=== PATIENT | male | born 1985 | race Two or more races ===

== ENCOUNTER 2016-11-19 23:13 | Inpatient (IN) | payer OTHER ==
[~2016-11-19] VITALS: Ht 167.6 cm; Wt 75.7 kg
[2016-11-19] MEDS ORDERED: CONTRAST GIVEN MC PRN (23:45)
[2016-11-19] MEDS ORDERED: fentaNYL PF VIAL 100 MCG/2 ML VIAL IV PRN (23:45)
[2016-11-19 23:51] LABS: BASO # 0.1 x10^3/uL (0.0-0.2); BASO % 1 % (0-3); EOS % 2 % (0-3); HEMATOCRIT 35.5 % (39.0-53.0); HEMOGLOBIN 11.1 g/dL (13.0-17.5); LYMPH # 4.3 x10^3/uL (1.0-4.8); LYMPH % 28 % (24-48); MEAN CORPUSCULAR HEMOGLOBIN 21 pg (25-35); MEAN CORPUSCULAR HGB CONC 31 g/dL (31-37); MEAN CORPUSCULAR VOLUME 68 fL (79-100); MONO % 7 % (0-9); NEUT % 63 % (31-73); PLATELET COUNT 322 x10^3/uL (140-400); RED BLOOD COUNT 5.25 x10^6/uL (4.30-5.70); RED CELL DISTRIBUTION WIDTH 16.1 % (11.5-14.5); WHITE BLOOD COUNT 15.4 x10^3/uL (4.0-11.0)
[2016-11-20] MEDS ORDERED: FAMOTIDINE 20 MG/2 ML VIAL IVP ONE
[2016-11-20] MEDS ORDERED: ONDANSETRON PF 4 MG/2 ML VIAL. IV ONE
[2016-11-20] MEDS ORDERED: IV NORMAL SALINE 1000ML BAG 1,000 ML IV SCH
[2016-11-20] MEDS ORDERED: LIDO:MAALOX:DONNATAL 1:1:1 15 ML SINGLE DOSE SWSW ONE
[2016-11-20 00:04] LABS: CALCIUM 9.4 mg/dL (8.5-10.1); CREATININE 1.3 mg/dL (0.7-1.3); POTASSIUM 3.6 mmol/L (3.5-5.1)
[2016-11-20 00:09] LABS: HYPOCHROMIA MOD; MICROCYTOSIS MARKED; PLT ESTIMATE ADEQUATE (ADEQUATE)
[2016-11-20 00:10] LABS: ALBUMIN 3.8 g/dL (3.4-5.0); TOTAL BILIRUBIN 0.3 mg/dL (0.2-1.0); TOTAL PROTEIN 7.5 g/dL (6.4-8.2)
[2016-11-20 00:29] LABS: BILIRUBIN,URINE NEGATIVE (NEG); GLUCOSE,URINE NEGATIVE (NEG); NITRITE,URINE NEGATIVE (NEG); PH,URINE 5.5; PROTEIN,URINE 100 mg/dL (NEG-TRACE); UROBILINOGEN,URINE 0.2 mg/dL (0.2 mg/dL)
[2016-11-20] MEDS ORDERED: IOHEXOL 300 MG/ML 75 ML VIAL IV ONE (00:30)
[2016-11-20 00:37] LABS: BACTERIA,URINE 0 /HPF (0-FEW); RBC,URINE TNTC /HPF (0-2); SQUAMOUS EPITHELIAL CELL,UR OCC /LPF
--- NOTE | 2016-11-20 01:00 | RAD ---
EXAM: CT ABDOMEN/PELVIS WITH CONTRAST. HISTORY: Left abdominal pain. TECHNIQUE: Computed tomography of the abdomen and pelvis was performed after the intravenous administration of 75 mL Omnipaque 300. COMPARISON: None. FINDINGS: Lung windows through the visualized portions of the bases reveal mild atelectasis. Bone windows reveal no suspicious lesions. A left ureteropelvic junction calculus measures 3 mm. The left kidney enhances left avidly than the right indicating a component of acute obstruction. There is no hydronephrosis. There are no clear right renal or ureteral calculi on this postcontrast study. The liver, gallbladder, pancreas, adrenal glands and spleen are unremarkable. There are no pathologically enlarged lymph nodes. The appendix is not inflamed. There is no obstruction. IMPRESSION: 1. 3 mm left ureteropelvic junction calculus with evidence of obstruction. Correlate with urinalysis to exclude superimposed infection. *One or more of the following individualized dose reduction techniques were utilized for this examination: 1. Automated exposure control. 2. Adjustment of the mA and/or kV according to patient size. 3. Use of iterative reconstruction technique. Electronically signed by: Alden Turk MD (11/20/2016 12:57 AM)
--- NOTE | 2016-11-20 01:20 | PHYS DOC ---
Past Medical History Past Medical History: No Pertinent History, Other Additional Past Medical Histor: HEMORRHOIDS Past Surgical History: Appendectomy Alcohol Use: None Drug Use: None Adult General Chief Complaint Chief Complaint: ABDOMINAL PAIN HPI HPI Patient is a 31 year old male who presents with complaint of left-sided abdominal pain. Patient states his symptoms started yesterday and it progressively worsened throughout the day today. Patient states he has had associated nausea with his symptoms but no vomiting or diarrhea. Patient denies any history of similar symptoms. Patient currently rates pain as 10 out of 10. Patient took Tylenol to help with symptoms with no relief. Patient denies any significant past medical history. Patient denies any known exacerbating factors for his pain. Patient describes the pain as colicky and located along the left side of his abdomen. Patient states that the pain radiates towards his left lower abdomen. Review of Systems Review of Systems Constitutional: Denies fever or chills [] Eyes: Denies change in visual acuity, redness, or eye pain [] HENT: Denies nasal congestion or sore throat [] Respiratory: Denies cough or shortness of breath [] Cardiovascular: Denies chest pain or edema [] GI: Abdominal pain, nausea, denies vomiting, bloody stools or diarrhea [] : Denies dysuria or hematuria [] Musculoskeletal: Denies back pain or joint pain [] Integument: Denies rash or skin lesions [] Neurologic: Denies headache, focal weakness or sensory changes [] Endocrine: Denies polyuria or polydipsia [] Current Medications Current Medications Current Medications Medications (Trade) Dose Ordered Sig/Alvin Start Time Stop Time Status Last Admin Dose Admin Famotidine (Pepcid) 20 mg 1X ONCE 11/20/16 00:00 11/20/16 00:01 DC 11/19/16 23:56 20 MG Fentanyl Citrate (Fentanyl 2ml Vial) 50 mcg PRN Q15MIN PRN 11/19/16 23:45 11/20/16 23:44 11/19/16 23:56 50 MCG Info (Do NOT chart on this entry -- for MONITORING) 1 each PRN DAILY PRN 11/19/16 23:45 11/21/16 23:44 Iohexol (Omnipaque 300 Mg/ml) 75 ml 1X ONCE 11/20/16 00:30 11/20/16 00:31 DC 11/20/16 00:10 75 ML Multi-Ingredient Mouthwash/Gargle (Gi Cocktail Single Dose) 15 ml 1X ONCE 11/20/16 00:00 11/20/16 00:01 DC 11/19/16 23:56 15 ML Ondansetron HCl (Zofran) 4 mg 1X ONCE 11/20/16 00:00 11/20/16 00:01 DC Sodium Chloride 1,000 ml @ 1,000 mls/hr Q1H 11/20/16 00:00 11/20/16 00:59 DC 11/19/16 23:56 1,000 MLS/HR Allergies Allergies Allergies Coded Allergies Type Severity Reaction Last Updated Verified No Known Drug Allergies 11/19/16 No Physical Exam Physical Exam Constitutional: Alert, afebrile, appears in moderate discomfort. [] HENT: Normocephalic, atraumatic, bilateral external ears normal, oropharynx moist, no oral exudates, nose normal. [] Eyes: PERRLA, EOMI, conjunctiva normal, no discharge. [] Neck: Normal range of motion, no tenderness, supple, no stridor. [] Cardiovascular:Heart rate regular rhythm, no murmur [] Lungs & Thorax: Bilateral breath sounds clear to auscultation [] Abdomen: Bowel sounds normal, soft, no tenderness, no masses, no pulsatile masses. [] Skin: Warm, dry, no erythema, no rash. [] Back: No tenderness, no CVA tenderness. [] Extremities: No tenderness, no cyanosis, no clubbing, ROM intact, no edema. [] Neurologic: Alert and oriented X 3, normal motor function, normal sensory function, no focal deficits noted. [] Current Patient Data Vital Signs Vital Signs Date Time Temp Pulse Resp B/P (MAP) Pulse Ox O2 Delivery O2 Flow Rate FiO2 11/19/16 23:36 99.5 105 28 143/89 (107) 100 Room Air 99.5 Lab Values Laboratory Tests Test 11/19/16 23:36 11/20/16 00:22 White Blood Count 15.4 x10^3/uL (4.0-11.0) H Red Blood Count 5.25 x10^6/uL (4.30-5.70) Hemoglobin 11.1 g/dL (13.0-17.5) L Hematocrit 35.5 % (39.0-53.0) L Mean Corpuscular Volume 68 fL (79-100) L Mean Corpuscular Hemoglobin 21 pg (25-35) L Mean Corpuscular Hemoglobin Concent 31 g/dL (31-37) Red Cell Distribution Width 16.1 % (11.5-14.5) H Platelet Count 322 x10^3/uL (140-400) Neutrophils (%) (Auto) 63 % (31-73) Lymphocytes (%) (Auto) 28 % (24-48) Monocytes (%) (Auto) 7 % (0-9) Eosinophils (%) (Auto) 2 % (0-3) Basophils (%) (Auto) 1 % (0-3) Neutrophils # (Auto) 9.7 x10^3uL (1.8-7.7) H Lymphocytes # (Auto) 4.3 x10^3/uL (1.0-4.8) Monocytes # (Auto) 1.1 x10^3/uL (0.0-1.1) Eosinophils # (Auto) 0.3 x10^3/uL (0.0-0.7) Basophils # (Auto) 0.1 x10^3/uL (0.0-0.2) Platelet Estimate Adequate (ADEQUATE) Hypochromasia Mod Microcytosis Marked Sodium Level 139 mmol/L (136-145) Potassium Level 3.6 mmol/L (3.5-5.1) Chloride Level 101 mmol/L (98-107) Carbon Dioxide Level 26 mmol/L (21-32) Anion Gap 12 (6-14) Blood Urea Nitrogen 17 mg/dL (8-26) Creatinine 1.3 mg/dL (0.7-1.3) Estimated GFR (Cockcroft-Gault) 64.0 BUN/Creatinine Ratio 13 (6-20) Glucose Level 99 mg/dL (70-99) Calcium Level 9.4 mg/dL (8.5-10.1) Total Bilirubin 0.3 mg/dL (0.2-1.0) Aspartate Amino Transferase (AST) 23 U/L (15-37) Alanine Aminotransferase (ALT) 28 U/L (16-63) Alkaline Phosphatase 103 U/L (46-116) Total Protein 7.5 g/dL (6.4-8.2) Albumin 3.8 g/dL (3.4-5.0) Albumin/Globulin Ratio 1.0 (1.0-1.7) Lipase 119 U/L (73-393) Urine Collection Type Unknown Urine Color Yellow Urine Clarity Clear Urine pH 5.5 Urine Specific [place] 1.015 Urine Protein 100 mg/dL (NEG-TRACE) Urine Glucose (UA) Negative mg/dL (NEG) Urine Ketones (Stick) Negative mg/dL (NEG) Urine Blood Large (NEG) Urine Nitrite Negative (NEG) Urine Bilirubin Negative (NEG) Urine Urobilinogen Dipstick 0.2 mg/dL (0.2 mg/dL) Urine Leukocyte Esterase Negative (NEG) Urine RBC Tntc /HPF (0-2) Urine WBC 5-10 /HPF (0-4) Urine Squamous Epithelial Cells Occ /LPF Urine Bacteria 0 /HPF (0-FEW) Urine Mucus Mod /LPF Laboratory Tests 11/19/16 23:36 Laboratory Tests 11/19/16 23:36 EKG EKG Not performed [] Radiology/Procedures Radiology/Procedures [facility] [address] [place] [address] IMAGING REPORT Signed PATIENT: ALINE GOLDBERG ACCOUNT: [id number] : 1985 LOCATION: ER AGE: 31 SEX: M EXAM STATUS: REG ER ORD. PHYSICIAN: GAVINO BOYD MD REASON: left upper and lower quadrant abdominal pain with guarding on exam PROCEDURE: CT ABD PELV W/ IV CONTRST ONLY EXAM: CT ABDOMEN/PELVIS WITH CONTRAST. HISTORY: Left abdominal pain. TECHNIQUE: Computed tomography of the abdomen and pelvis was performed after the intravenous administration of 75 mL Omnipaque 300. COMPARISON: None. FINDINGS: Lung windows through the visualized portions of the bases reveal mild atelectasis. Bone windows reveal no suspicious lesions. A left ureteropelvic junction calculus measures 3 mm. The left kidney enhances left avidly than the right indicating a component of acute obstruction. There is no hydronephrosis. There are no clear right renal or ureteral calculi on this postcontrast study. The liver, gallbladder, pancreas, adrenal glands and spleen are unremarkable. There are no pathologically enlarged lymph nodes. The appendix is not inflamed. There is no obstruction. IMPRESSION: 1. 3 mm left ureteropelvic junction calculus with evidence of obstruction. Correlate with urinalysis to exclude superimposed infection. *One or more of the following individualized dose reduction techniques were utilized for this examination: 1. Automated exposure control. 2. Adjustment of the mA and/or kV according to patient size. 3. Use of iterative reconstruction technique. Electronically signed by: Alden Turk MD (11/20/2016 12:57 AM) DICTATED and SIGNED BY: ALDEN TURK MD DATE: 11/20/16 0053 CC: GAVINO BODY MD; NO PCP ~ [] Course & Med Decision Making Course & Med Decision Making Pertinent Labs and Imaging studies reviewed. (See chart for details) Patient found to have a proximal obstructing ureteral stone. Patient was given IV pain medication with minimal relief in symptoms. The patient will be admitted to the hospital for continued symptomatic control and urology consult. Patient admitted to Dr. Rai. Dragon Disclaimer Dragon Disclaimer This electronic medical record was generated, in whole or in part, using a voice recognition dictation system. Departure Departure Impression: Primary Impression: Ureteral stone with hydronephrosis Disposition: ADMITTED INPATIENT Admitting Physician: Tung Rai Condition: STABLE Referrals: NO PCP (PCP) GAVINO BOYD MD November 20, 2016 01:20
[2016-11-20] MEDS ORDERED: ACETAMINOPHEN 325 MG TABLET. PO PRN (01:30)
[2016-11-20] MEDS ORDERED: ONDANSETRON PF 4 MG/2 ML VIAL. IV PRN (01:30)
[2016-11-20] MEDS ORDERED: MORPHINE SULFATE 4 MG/ML DISP.SYRIN. IV PRN (01:30)
--- NOTE | 2016-11-20 01:36 | ACF ---
Admit Criteria Forms Admit Criteria Forms Admit Criteria Forms RENAL COLIC AND KIDNEY STONES Clinical Indications for Admission to Inpatient Care ( Place 'X' for any and all applicable criteria): Admission is indicated for ANY ONE of the following (1)(2)(3)(4): [X ]I. Inpatient admission required rather than observation care (Also use Renal Colic and Kidney Stones: Observation Care Criteria as appropriate) because of ANY ONE of the following: [X]a) Severe pain requiring acute inpatient management [ ]b) Urinary tract infection identified [ ]c) Vomiting that is severe or persistent [ ]d) IV fluid required rather than oral rehydration to replace significant ongoing (eg, for greater than 24 hours) losses (greater than 200 mL/hr or 3 L/m2 per day) [ ]e) Percutaneous or open drainage (eg, abscess, biliary tract) procedures [ ]f) Other condition, treatment or monitoring requiring inpatient admission [ ]II. Impending acute renal failure [ ]III. Bilateral obstruction [ ]IV. Single kidney with obstruction [ ]V. Transplanted kidney with obstruction [ ]. Possible open surgical procedure needed (eg, pyonephrosis, stone removal not amendable to other means) [ ]VII. Hemodynamic instability Extended stay beyond goal length of stay may be needed for(2)(3)(31): [ ]a) Failed initial stone removal (32) [ ]b) Pyonephrosis [ ]c) Obstructive uropathy with urinary tract infection [ ]d) Procedure complications [ ]e) Comorbidities (22) The original [employer] content created by [employer] has been revised. The portions of the content which have been revised are identified through the use of italic text or in bold, and [facility] has neither reviewed nor approved the modified material. All other unmodified content is copyright [employer] Please see references footnoted in the original [employer] edition 2016 CHAYO MAHER November 20, 2016 01:36
[2016-11-20 02:55] VITALS: BP 101/65
[2016-11-20] MEDS: IV NORMAL SALINE 1000ML BAG 1,000 ML IV SCH ×5 (03:07→23:33)
[2016-11-20 07:00] VITALS: BP 93/46
--- NOTE | 2016-11-20 09:29 | PDOC1 ---
History and Physical Date of Admission Date of Admission DATE: 11/20/16 TIME: 09:26 Identification/Chief Complaint Chief Complaint abd pain Problems: Source Source: Chart review, Patient History of Present Illness History of Present Illness Mr. Garcia, is a 31 year old male admit with acute and severe left-sided abdominal pain. about 24 hours of pain, much worse last night, a little better this AM he has a prior history of stones, left sided 13mm, req. lithotrypsy by Dr. Nolasco at [facility]. pain 7/10, was 10 last night . Patient describes the pain as colicky and located along the left side of his abdomen. Patient states that the pain radiates towards his left lower abdomen. Past Medical History Cardiovascular: No pertinent hx Pulmonary: No pertinent hx GI: No pertinent hx Rheumatologic: No pertinent hx Endocrine: No pertinent hx Dermatology: No pertinent hx Past Surgical History Past Surgical History: Other (renal stone) Family History Family History: No Significant Social History Smoke: No ALCOHOL: none Drugs: None Current Problem List Problem List Problems Medical Problems: (1) Ureteral stone with hydronephrosis Status: Acute Problems: Current Medications Current Medications Current Medications Multi-Ingredient Mouthwash/Gargle (Gi Cocktail Single Dose) 15 ml 1X ONCE SWSW Last administered on 11/19/16 23:56; Start 11/20/16 at 00:00; Stop 11/20/16 at 00:01; Status DC Fentanyl Citrate (Fentanyl 2ml Vial) 50 mcg PRN Q15MIN PRN IV PAIN GREATER THAN 3/10 Last administered on 11/19/16 23:56; Start 11/19/16 at 23:45; Stop at 23:44 Sodium Chloride 1,000 ml @ 1,000 mls/hr Q1H IV Last administered on 11/19/16 23:56; Start 11/20/16 at 00:00; Stop 11/20/16 at 00:59; Status DC Ondansetron HCl (Zofran) 4 mg 1X ONCE IV ; Start 11/20/16 at 00:00; Stop at 00:01; Status DC Famotidine (Pepcid) 20 mg 1X ONCE IVP Last administered on 11/19/16 23:56; Start 11/20/16 at 00:00; Stop 11/20/16 at 00:01; Status DC Iohexol (Omnipaque 300 Mg/ml) 75 ml 1X ONCE IV Last administered on 11/20/16 00:10; Start 11/20/16 at 00:30; Stop 11/20/16 at 00:31; Status DC Info (Do NOT chart on this entry -- for MONITORING) 1 each PRN DAILY PRN MC SEE COMMENTS; Start 11/19/16 at 23:45; Stop 11/21/16 at 23:44 Ondansetron HCl (Zofran) 4 mg PRN Q8HRS PRN IV NAUSEA/VOMITING; Start 11/20/16 at 01:30; Stop 11/21/16 at 01:29 Morphine Sulfate 4 mg PRN Q2HR PRN IV SEVERE PAIN; Start 11/20/16 at 01:30; Stop 11/21/16 at 01:29 Sodium Chloride 1,000 ml @ 100 mls/hr Q10H IV Last administered on 11/20/16 03:07; Start 11/20/16 at 01:20; Stop 11/21/16 at 01:19 Acetaminophen (Tylenol) 650 mg PRN Q4HRS PRN PO FEVER; Start 11/20/16 at 01:30 ; Stop 11/21/16 at 01:29 Allergies Allergies: Coded Allergies: No Known Drug Allergies (Unverified , 11/19/16) ROS General: YES: Malaise, No: Chills, Night Sweats, Fatigue, Appetite, Other PSYCHOLOGICAL ROS: No: Anxiety, Behavioral Disorder, Concentration difficultie , Decreased libido, Depression, Disorientation, Hallucinations, Hostility, Irritablity, Memory difficulties, Mood Swings, Obsessive thoughts, Physical abuse, Sexual abuse, Sleep disturbances, Suicidal ideation, Other Eyes: No Blurry vision, No Decreased vision, No Double vision, No Dry eyes, No Excessive tearing, No Eye Pain, No Itchy Eyes, No Loss of vision, No Photophobia , No Scotomata, No Uses contacts, No Uses glasses, No Other HEENT: No: Heacaches, Visual Changes, Hearing change, Nasal congestion, Nasal discharge, Oral lesions, Sinus pain, Sore Throat, Epistaxis, Sneezing, Snoring, Tinnitus, Vertigo, Vocal changes, Other Respiratory: No: Cough, Hemoptysis, Orthopnea, Pleuritic Pain, Shortness of breath, SOB with excertion, Sputum Changes, Stridor, Tachypnea, Wheezing, Other Cardiovascular: No Chest Pain, No Palpitations, No Orthopnea, No Paroxysmal Noc. Dyspnea, No Edema, No Lt Headedness, No Other Gastrointestinal: Yes Nausea, Yes Abdominal Pain, No Vomiting, No Diarrhea, No Constipation, No Melena, No Hematochezia, No Other Genitourinary: YES Flank Pain, No Dysuria, No Frequency, No Incontinence, No Hematuria, No Retention, No Discharge, No Urgency, No Pain, No Other, No , No , No , No , No , No , No Musculoskeletal: No Gait Disturbance, No Joint Pain, No Joint Stiffness, No Joint Swelling, No Muscle Pain, No Muscular Weakness, No Pain In:, No Swelling In:, No Other Neurological: No Behavorial Changes, No Bowel/Bladder ControlChng, No Confusion , No Dizziness, No Gait Disturbance, No Headaches, No Impaired Coord/balance, No Memory Loss, No Numbness/Tingling, No Seizures, No Speech Problems, No Tremors, No Visual Changes, No Weakness, No Other Skin: No Dry Skin, No Eczema, No Hair Changes, No Lumps, No Mole Changes, No Mottling, No Nail Changes, No Pruritus, No Rash, No Skin Lesion Changes, No Other, No Acne Physical Exam General: Alert, Cooperative, mild distress HEENT: Atraumatic, PERRLA Lungs: Clear to auscultation Heart: S1S2, no murmurs Abdomen: Normal bowel sounds, Soft (tender left) Extremities: No edema, Normal pulses Skin: No significant lesion Neuro: Normal speech, Sensation intact, Cranial nerves 3-12 NL Psych/Mental Status: Mood NL Vitals Vitals Vital Signs Date Time Temp Pulse Resp B/P (MAP) Pulse Ox O2 Delivery O2 Flow Rate FiO2 11/20/16 08:00 Room Air 11/20/16 07:00 97.5 61 16 93/46 (62) 99 97.5 11/20/16 01:47 2.0 Labs Labs Laboratory Tests Test 11/19/16 23:36 11/20/16 00:22 White Blood Count 15.4 x10^3/uL (4.0-11.0) Red Blood Count 5.25 x10^6/uL (4.30-5.70) Hemoglobin 11.1 g/dL (13.0-17.5) Hematocrit 35.5 % (39.0-53.0) Mean Corpuscular Volume 68 fL (79-100) Mean Corpuscular Hemoglobin 21 pg (25-35) Mean Corpuscular Hemoglobin Concent 31 g/dL (31-37) Red Cell Distribution Width 16.1 % (11.5-14.5) Platelet Count 322 x10^3/uL (140-400) Neutrophils (%) (Auto) 63 % (31-73) Lymphocytes (%) (Auto) 28 % (24-48) Monocytes (%) (Auto) 7 % (0-9) Eosinophils (%) (Auto) 2 % (0-3) Basophils (%) (Auto) 1 % (0-3) Neutrophils # (Auto) 9.7 x10^3uL (1.8-7.7) Lymphocytes # (Auto) 4.3 x10^3/uL (1.0-4.8) Monocytes # (Auto) 1.1 x10^3/uL (0.0-1.1) Eosinophils # (Auto) 0.3 x10^3/uL (0.0-0.7) Basophils # (Auto) 0.1 x10^3/uL (0.0-0.2) Platelet Estimate Adequate (ADEQUATE) Hypochromasia Mod Microcytosis Marked Sodium Level 139 mmol/L (136-145) Potassium Level 3.6 mmol/L (3.5-5.1) Chloride Level 101 mmol/L (98-107) Carbon Dioxide Level 26 mmol/L (21-32) Anion Gap 12 (6-14) Blood Urea Nitrogen 17 mg/dL (8-26) Creatinine 1.3 mg/dL (0.7-1.3) Estimated GFR (Cockcroft-Gault) 64.0 BUN/Creatinine Ratio 13 (6-20) Glucose Level 99 mg/dL (70-99) Calcium Level 9.4 mg/dL (8.5-10.1) Total Bilirubin 0.3 mg/dL (0.2-1.0) Aspartate Amino Transf (AST/SGOT) 23 U/L (15-37) Alanine Aminotransferase (ALT/SGPT) 28 U/L (16-63) Alkaline Phosphatase 103 U/L (46-116) Total Protein 7.5 g/dL (6.4-8.2) Albumin 3.8 g/dL (3.4-5.0) Albumin/Globulin Ratio 1.0 (1.0-1.7) Lipase 119 U/L (73-393) Urine Collection Type Unknown Urine Color Yellow Urine Clarity Clear Urine pH 5.5 Urine Specific [place] 1.015 Urine Protein 100 mg/dL (NEG-TRACE) Urine Glucose (UA) Negative mg/dL (NEG) Urine Ketones (Stick) Negative mg/dL (NEG) Urine Blood Large (NEG) Urine Nitrite Negative (NEG) Urine Bilirubin Negative (NEG) Urine Urobilinogen Dipstick 0.2 mg/dL (0.2 mg/dL) Urine Leukocyte Esterase Negative (NEG) Urine RBC Tntc /HPF (0-2) Urine WBC 5-10 /HPF (0-4) Urine Squamous Epithelial Cells Occ /LPF Urine Bacteria 0 /HPF (0-FEW) Urine Mucus Mod /LPF Laboratory Tests Test 11/19/16 23:36 11/20/16 00:22 White Blood Count 15.4 x10^3/uL (4.0-11.0) Red Blood Count 5.25 x10^6/uL (4.30-5.70) Hemoglobin 11.1 g/dL (13.0-17.5) Hematocrit 35.5 % (39.0-53.0) Mean Corpuscular Volume 68 fL (79-100) Mean Corpuscular Hemoglobin 21 pg (25-35) Mean Corpuscular Hemoglobin Concent 31 g/dL (31-37) Red Cell Distribution Width 16.1 % (11.5-14.5) Platelet Count 322 x10^3/uL (140-400) Neutrophils (%) (Auto) 63 % (31-73) Lymphocytes (%) (Auto) 28 % (24-48) Monocytes (%) (Auto) 7 % (0-9) Eosinophils (%) (Auto) 2 % (0-3) Basophils (%) (Auto) 1 % (0-3) Neutrophils # (Auto) 9.7 x10^3uL (1.8-7.7) Lymphocytes # (Auto) 4.3 x10^3/uL (1.0-4.8) Monocytes # (Auto) 1.1 x10^3/uL (0.0-1.1) Eosinophils # (Auto) 0.3 x10^3/uL (0.0-0.7) Basophils # (Auto) 0.1 x10^3/uL (0.0-0.2) Platelet Estimate Adequate (ADEQUATE) Hypochromasia Mod Microcytosis Marked Sodium Level 139 mmol/L (136-145) Potassium Level 3.6 mmol/L (3.5-5.1) Chloride Level 101 mmol/L (98-107) Carbon Dioxide Level 26 mmol/L (21-32) Anion Gap 12 (6-14) Blood Urea Nitrogen 17 mg/dL (8-26) Creatinine 1.3 mg/dL (0.7-1.3) Estimated GFR (Cockcroft-Gault) 64.0 BUN/Creatinine Ratio 13 (6-20) Glucose Level 99 mg/dL (70-99) Calcium Level 9.4 mg/dL (8.5-10.1) Total Bilirubin 0.3 mg/dL (0.2-1.0) Aspartate Amino Transf (AST/SGOT) 23 U/L (15-37) Alanine Aminotransferase (ALT/SGPT) 28 U/L (16-63) Alkaline Phosphatase 103 U/L (46-116) Total Protein 7.5 g/dL (6.4-8.2) Albumin 3.8 g/dL (3.4-5.0) Albumin/Globulin Ratio 1.0 (1.0-1.7) Lipase 119 U/L (73-393) Urine Collection Type Unknown Urine Color Yellow Urine Clarity Clear Urine pH 5.5 Urine Specific [place] 1.015 Urine Protein 100 mg/dL (NEG-TRACE) Urine Glucose (UA) Negative mg/dL (NEG) Urine Ketones (Stick) Negative mg/dL (NEG) Urine Blood Large (NEG) Urine Nitrite Negative (NEG) Urine Bilirubin Negative (NEG) Urine Urobilinogen Dipstick 0.2 mg/dL (0.2 mg/dL) Urine Leukocyte Esterase Negative (NEG) Urine RBC Tntc /HPF (0-2) Urine WBC 5-10 /HPF (0-4) Urine Squamous Epithelial Cells Occ /LPF Urine Bacteria 0 /HPF (0-FEW) Urine Mucus Mod /LPF VTE Prophylaxis Ordered VTE Prophylaxis Devices: No VTE Pharmacological Prophylaxi: No Assessment/Plan Assessment/Plan renal colic urolithiasis, acute abd pain NPO for URO eval 3mm stone, should be able to pass, increase fluid to 175 hr PRIMO SANDERS MD November 20, 2016 09:29
[2016-11-20] MEDS ORDERED: fentaNYL PF VIAL 100 MCG/2 ML VIAL IV ONE (09:45)
[2016-11-20 10:43] VITALS: BP 97/52
[2016-11-20 15:00] VITALS: BP 108/65
--- NOTE | 2016-11-20 16:20 | PDOC ---
Provider Note Provider Note Urology: Consult dictated c/c 3mm left ureteral calculus proximal left ureter Hx of kidney stones treated by Dr Garcia at Plan: increase oral fluids 8 (12oz) glasses of water/day maintain urine output of 2000 cc per day Rx Flomax, Hydrocodone, Zofran should be able to go home tomorrow on expulsive medical therapy desires to f/u with his urologist at Thank you, KATHARINA RODAS DO November 20, 2016 16:20
[2016-11-20] MEDS: TAMSULOSIN 0.4 MG CAP.ER.24H. PO SCH (16:42)
[2016-11-20 19:00] VITALS: BP 115/62
[2016-11-20 23:00] VITALS: BP 117/70
[2016-11-21 02:46] VITALS: BP 89/46
--- NOTE | 2016-11-21 03:11 | CONS ---
DATE OF CONSULTATION: 11/20/2016 CHIEF COMPLAINT: Acute left flank pain. HISTORY OF PRESENT ILLNESS: This is a 31-year-old male that was admitted through the Emergency Room with acute left flank pain. He has a history of kidney stones and has been treated previously at [facility] [place] by ____. The CT scan revealed a 3-mm calculus in the region of the left ureteropelvic junction. The hydronephrosis was very mild in nature. The patient is resting more comfortably today with IV fluids. He has only required pain medication once earlier today. ALLERGIES: The patient denies any significant allergies. PAST MEDICAL HISTORY: The patient enjoys good health. He has had previous history of kidney stones, which was treated at [facility] [place] approximately 5 years ago according to the patient. The patient otherwise denies any chronic illnesses. PAST SURGICAL HISTORY: He has had no major abdominal surgery. HOME MEDICATIONS: Denies. PHYSICAL EXAMINATION: GENERAL DESCRIPTION: A 31-year-old male. He is resting comfortably at this time. He is alert and oriented, denies acute pain. ABDOMEN: Soft, nontender to palpation. Some mild left flank tenderness to palpation. The right flank was normal. No suprapubic tenderness. RECTAL: Exam not performed. MUSCULOSKELETAL: Good range of motion. Negative for cyanosis or edema. LABORATORY DATA: The patient's white blood cell count 15.4, hemoglobin 11.1, hematocrit 35.5, platelet count was within normal limits. The patient's electrolytes were normal. His BUN 17, creatinine 1.3, calcium is 9.4. Urinalysis: Danni in color, large dipstick blood, too numerous to count red blood cells, 5-10 white blood cells, negative for bacteria. X-RAY STUDIES: The patient underwent a CT of the abdomen and pelvis with contrast. This revealed a 3-mm calculus at the left ureteropelvic junction. There is no hydronephrosis. IMPRESSION: 1. Left ureteral colic -- improved. 2. A 3-mm proximal left ureteral calculus with no significant ____. PLAN: 1. I think this calculus should pass spontaneously and we placed the patient on Flomax. He increases his fluids ____ ounce glasses of water a day. 2. We should be able to send him home tomorrow with Flomax, pain medicine and instructions to push the fluids and send him home with a strainer. 3. If he does not pass the stone spontaneously, he can follow up with his urologist at . Thank you for the opportunity to participate in care of this patient. KATHARINA RODAS DO DR: Jamie JOB#: [id number] / [id number]
[2016-11-21 04:39] LABS: BASO % 0 % (0-3); EOS % 3 % (0-3); HEMATOCRIT 30.8 % (39.0-53.0); HEMOGLOBIN 9.7 g/dL (13.0-17.5); LYMPH # 3.3 x10^3/uL (1.0-4.8); LYMPH % 38 % (24-48); MEAN CORPUSCULAR HEMOGLOBIN 22 pg (25-35); MEAN CORPUSCULAR HGB CONC 32 g/dL (31-37); MEAN CORPUSCULAR VOLUME 68 fL (79-100); MONO % 8 % (0-9); NEUT % 50 % (31-73); PLATELET COUNT 260 x10^3/uL (140-400); RED BLOOD COUNT 4.52 x10^6/uL (4.30-5.70); RED CELL DISTRIBUTION WIDTH 15.7 % (11.5-14.5); WHITE BLOOD COUNT 8.7 x10^3/uL (4.0-11.0)
[2016-11-21 05:15] LABS: CALCIUM 8.1 mg/dL (8.5-10.1); GFR 86.6; POTASSIUM 3.6 mmol/L (3.5-5.1)
[2016-11-21 07:00] VITALS: BP 117/67
[2016-11-21] MEDS: IV NORMAL SALINE 1000ML BAG 1,000 ML IV SCH (08:17)
[2016-11-21] MEDS: TAMSULOSIN 0.4 MG CAP.ER.24H. PO SCH (08:17)
[2016-11-21] MEDS ORDERED: TAMS0.4C97 PO (09:29)
[2016-11-21] MEDS ORDERED: TRAM-29 PO (09:29)
[2016-11-21] MEDS ORDERED: TAMSULOSIN 0.4 MG CAP.ER.24H. PO SCH (09:30)
[2016-11-21] MEDS ORDERED: HYDR-2666 PO (10:18)
--- NOTE | 2016-11-21 15:21 | PDOC3 ---
Discharge Summary Visit Information Date of Admission: November 20, 2016 Date of Discharge: Nov 21, 2016 Admitting Diagnosis: flank pain Final Diagnosis renal colic urolithiasis, acute abd pain 3mm stone, should be able to pass, Problems Medical Problems: (1) Ureteral stone with NO hydronephrosis Status: Acute Brief Hospital Course Allergies Allergies Coded Allergies Type Severity Reaction Last Updated Verified No Known Drug Allergies 11/19/16 No Vital Signs Vital Signs Date Time Temp Pulse Resp B/P (MAP) Pulse Ox O2 Delivery O2 Flow Rate FiO2 11/21/16 08:00 Room Air 11/21/16 07:00 97.0 71 18 117/67 (84) 98 97.0 11/20/16 19:59 2.0 Lab Results Laboratory Tests Test 11/19/16 23:36 11/20/16 00:22 11/21/16 03:58 White Blood Count 15.4 x10^3/uL (4.0-11.0) 8.7 x10^3/uL (4.0-11.0) Red Blood Count 5.25 x10^6/uL (4.30-5.70) 4.52 x10^6/uL (4.30-5.70) Hemoglobin 11.1 g/dL (13.0-17.5) 9.7 g/dL (13.0-17.5) Hematocrit 35.5 % (39.0-53.0) 30.8 % (39.0-53.0) Mean Corpuscular Volume 68 fL (79-100) 68 fL (79-100) Mean Corpuscular Hemoglobin 21 pg (25-35) 22 pg (25-35) Mean Corpuscular Hemoglobin Concent 31 g/dL (31-37) 32 g/dL (31-37) Red Cell Distribution Width 16.1 % (11.5-14.5) 15.7 % (11.5-14.5) Platelet Count 322 x10^3/uL (140-400) 260 x10^3/uL (140-400) Neutrophils (%) (Auto) 63 % (31-73) 50 % (31-73) Lymphocytes (%) (Auto) 28 % (24-48) 38 % (24-48) Monocytes (%) (Auto) 7 % (0-9) 8 % (0-9) Eosinophils (%) (Auto) 2 % (0-3) 3 % (0-3) Basophils (%) (Auto) 1 % (0-3) 0 % (0-3) Neutrophils # (Auto) 9.7 x10^3uL (1.8-7.7) 4.4 x10^3uL (1.8-7.7) Lymphocytes # (Auto) 4.3 x10^3/uL (1.0-4.8) 3.3 x10^3/uL (1.0-4.8) Monocytes # (Auto) 1.1 x10^3/uL (0.0-1.1) 0.7 x10^3/uL (0.0-1.1) Eosinophils # (Auto) 0.3 x10^3/uL (0.0-0.7) 0.3 x10^3/uL (0.0-0.7) Basophils # (Auto) 0.1 x10^3/uL (0.0-0.2) 0.0 x10^3/uL (0.0-0.2) Platelet Estimate Adequate (ADEQUATE) Hypochromasia Mod Microcytosis Marked Sodium Level 139 mmol/L (136-145) 143 mmol/L (136-145) Potassium Level 3.6 mmol/L (3.5-5.1) 3.6 mmol/L (3.5-5.1) Chloride Level 101 mmol/L (98-107) 108 mmol/L (98-107) Carbon Dioxide Level 26 mmol/L (21-32) 26 mmol/L (21-32) Anion Gap 12 (6-14) 9 (6-14) Blood Urea Nitrogen 17 mg/dL (8-26) 13 mg/dL (8-26) Creatinine 1.3 mg/dL (0.7-1.3) 1.0 mg/dL (0.7-1.3) Estimated GFR (Cockcroft-Gault) 64.0 86.6 BUN/Creatinine Ratio 13 (6-20) Glucose Level 99 mg/dL (70-99) 92 mg/dL (70-99) Calcium Level 9.4 mg/dL (8.5-10.1) 8.1 mg/dL (8.5-10.1) Total Bilirubin 0.3 mg/dL (0.2-1.0) Aspartate Amino Transf (AST/SGOT) 23 U/L (15-37) Alanine Aminotransferase (ALT/SGPT) 28 U/L (16-63) Alkaline Phosphatase 103 U/L (46-116) Total Protein 7.5 g/dL (6.4-8.2) Albumin 3.8 g/dL (3.4-5.0) Albumin/Globulin Ratio 1.0 (1.0-1.7) Lipase 119 U/L (73-393) Urine Collection Type Unknown Urine Color Yellow Urine Clarity Clear Urine pH 5.5 Urine Specific [place] 1.015 Urine Protein 100 mg/dL (NEG-TRACE) Urine Glucose (UA) Negative mg/dL (NEG) Urine Ketones (Stick) Negative mg/dL (NEG) Urine Blood Large (NEG) Urine Nitrite Negative (NEG) Urine Bilirubin Negative (NEG) Urine Urobilinogen Dipstick 0.2 mg/dL (0.2 mg/dL) Urine Leukocyte Esterase Negative (NEG) Urine RBC Tntc /HPF (0-2) Urine WBC 5-10 /HPF (0-4) Urine Squamous Epithelial Cells Occ /LPF Urine Bacteria 0 /HPF (0-FEW) Urine Mucus Mod /LPF Laboratory Tests Test 11/21/16 03:58 White Blood Count 8.7 x10^3/uL (4.0-11.0) Red Blood Count 4.52 x10^6/uL (4.30-5.70) Hemoglobin 9.7 g/dL (13.0-17.5) Hematocrit 30.8 % (39.0-53.0) Mean Corpuscular Volume 68 fL (79-100) Mean Corpuscular Hemoglobin 22 pg (25-35) Mean Corpuscular Hemoglobin Concent 32 g/dL (31-37) Red Cell Distribution Width 15.7 % (11.5-14.5) Platelet Count 260 x10^3/uL (140-400) Neutrophils (%) (Auto) 50 % (31-73) Lymphocytes (%) (Auto) 38 % (24-48) Monocytes (%) (Auto) 8 % (0-9) Eosinophils (%) (Auto) 3 % (0-3) Basophils (%) (Auto) 0 % (0-3) Neutrophils # (Auto) 4.4 x10^3uL (1.8-7.7) Lymphocytes # (Auto) 3.3 x10^3/uL (1.0-4.8) Monocytes # (Auto) 0.7 x10^3/uL (0.0-1.1) Eosinophils # (Auto) 0.3 x10^3/uL (0.0-0.7) Basophils # (Auto) 0.0 x10^3/uL (0.0-0.2) Sodium Level 143 mmol/L (136-145) Potassium Level 3.6 mmol/L (3.5-5.1) Chloride Level 108 mmol/L (98-107) Carbon Dioxide Level 26 mmol/L (21-32) Anion Gap 9 (6-14) Blood Urea Nitrogen 13 mg/dL (8-26) Creatinine 1.0 mg/dL (0.7-1.3) Estimated GFR (Cockcroft-Gault) 86.6 Glucose Level 92 mg/dL (70-99) Calcium Level 8.1 mg/dL (8.5-10.1) Brief Hospital Course Mr. Garcia is a 31 old admit for flank pain, small stone. 3mm he has had 13mm stone before, req lithotrypsy, will f/u at [facility] with his urologist, push fluid, pain meds and flomax, DC home Discharge Information Condition at Discharge: Improved Follow Up: Weeks Disposition/Orders: D/C to Home Scheduled Tamsulosin Hcl (Flomax), 1 CAP PO DAILY Scheduled PRN Hydrocodone Bit/Acetaminophen (Hydrocodone-Apap 5-325 ), 1 TAB PO PRN Q6HRS PRN for PAIN, (Reported) Tramadol Hcl (Ultram), 1 TAB PO Q6HRS PRN for PAIN PRIMO SANDERS MD Nov 21, 2016 15:21
== END 2016-11-21 11:22 | disposition home or self-care (01) | DRG 694 ==
LOC: ER 23:13 → 5 NORTH 11-20 01:12
PROVIDERS: ADMIT Internal Medicine; ATTEND Internal Medicine
DX: N13.2 Hydronephrosis with renal and ureteral calculous obstruction (principal); Z90.49 Acquired absence of other specified parts of digestive tract
CPT/HCPCS: 36415; 74177; 80048; 80053; 81001; 83690; 85007; 85027; 87086; 96361; 96374; 96375; J3010; J7030; Q9967; S0028; 99285-25

== ENCOUNTER 2016-11-29 19:22 | Emergency (ER) | payer OTHER ==
[~2016-11-29] VITALS: Ht 165.1 cm; Wt 74.8 kg
[~2016-11-29 19:22] MED LIST: HYDR-2758 PO; TAMS0.4C97 PO; TRAM-48 PO
--- NOTE | 2016-11-29 19:58 | PHYS DOC ---
Past Medical History Past Medical History: Kidney Stone, Other Additional Past Medical Histor: HEMORRHOIDS Past Surgical History: Appendectomy, Other Additional Past Surgical Histo: CYSTOSCOPY W/ KIDNEY STONE REMOVAL & STENT PLACEMENT Alcohol Use: None Drug Use: None Adult General Chief Complaint Chief Complaint: ABDOMINAL PAIN HPI HPI Patient is a 31 year old male who presents with diarrhea and abdominal pain. He states it started yesterday and got worse today. He states he's had approximately 10 nonbloody loose stools today. He states the pain is across his entire belly and is constant. Nothing makes the pain better. He states a 10 out 10 pain. He has had his appendix removed about 10 years ago. He's had a recent kidney stone and was admitted here for that. He usually follows at the [facility]. He is on Flomax currently otherwise he takes no medications. He states this pain is nothing like his previous kidney stone pain. Review of Systems Review of Systems Constitutional: Denies fever or chills [] Eyes: Denies change in visual acuity, redness, or eye pain [] HENT: Denies nasal congestion or sore throat [] Respiratory: Denies cough or shortness of breath [] Cardiovascular: No additional information not addressed in HPI [] GI: Positive for abdominal pain,diarrhea, denies any nausea, vomiting, bloody stools : Denies dysuria or hematuria [] Musculoskeletal: Denies back pain or joint pain [] Integument: Denies rash or skin lesions [] Neurologic: Denies headache, focal weakness or sensory changes [] Endocrine: Denies polyuria or polydipsia [] Current Medications Current Medications Current Medications Medications (Trade) Dose Ordered Sig/[facility] Start Time Stop Time Status Last Admin Dose Admin Info (Do NOT chart on this entry -- for MONITORING) 1 each PRN DAILY PRN 11/29/16 20:30 12/01/16 20:29 Iohexol (Omnipaque 300 Mg/ml) 75 ml 1X ONCE 11/29/16 20:30 11/29/16 20:31 DC Morphine Sulfate 4 mg PRN Q15MIN PRN 11/29/16 20:15 11/30/16 20:14 11/29/16 20:30 4 MG Ondansetron HCl (Zofran) 4 mg 1X ONCE 11/29/16 20:15 11/29/16 20:16 DC 11/29/16 20:30 4 MG Sodium Chloride 1,000 ml @ 1,000 mls/hr Q1H 11/29/16 20:01 11/29/16 21:00 11/29/16 20:30 1,000 MLS/HR Allergies Allergies Allergies Coded Allergies Type Severity Reaction Last Updated Verified No Known Drug Allergies 11/19/16 No Physical Exam Physical Exam Constitutional: Well developed, well nourished, no acute distress, non-toxic appearance. [] HENT: Normocephalic, atraumatic, bilateral external ears normal, oropharynx moist, no oral exudates, nose normal. [] Eyes: PERRLA, EOMI, conjunctiva normal, no discharge. [] Neck: Normal range of motion, no tenderness, supple, no stridor. [] Cardiovascular:Heart rate regular rhythm, no murmur [] Lungs & Thorax: Bilateral breath sounds clear to auscultation [] Abdomen: Bowel sounds hyperactive high-pitched, soft, no tenderness, no masses, no pulsatile masses. [] Skin: Warm, dry, no erythema, no rash. [] Back: No tenderness, no CVA tenderness. [] Extremities: No tenderness, no cyanosis, no clubbing, ROM intact, no edema. [] Neurologic: Alert and oriented X 3, normal motor function, normal sensory function, no focal deficits noted. [] Psychologic: Affect normal, judgement normal, mood normal. [] Current Patient Data Vital Signs Vital Signs Date Time Temp Pulse Resp B/P (MAP) Pulse Ox O2 Delivery O2 Flow Rate FiO2 11/29/16 19:33 98.8 105 16 140/89 (106) 98 Room Air 98.8 Lab Values Laboratory Tests Test 11/29/16 20:01 White Blood Count 10.7 x10^3/uL (4.0-11.0) Red Blood Count 5.52 x10^6/uL (4.30-5.70) Hemoglobin 11.8 g/dL (13.0-17.5) L Hematocrit 37.2 % (39.0-53.0) L Mean Corpuscular Volume 67 fL (79-100) L Mean Corpuscular Hemoglobin 21 pg (25-35) L Mean Corpuscular Hemoglobin Concent 32 g/dL (31-37) Red Cell Distribution Width 16.1 % (11.5-14.5) H Platelet Count 368 x10^3/uL (140-400) Neutrophils (%) (Auto) 70 % (31-73) Lymphocytes (%) (Auto) 19 % (24-48) L Monocytes (%) (Auto) 9 % (0-9) Eosinophils (%) (Auto) 2 % (0-3) Basophils (%) (Auto) 0 % (0-3) Neutrophils # (Auto) 7.5 x10^3uL (1.8-7.7) Lymphocytes # (Auto) 2.1 x10^3/uL (1.0-4.8) Monocytes # (Auto) 0.9 x10^3/uL (0.0-1.1) Eosinophils # (Auto) 0.2 x10^3/uL (0.0-0.7) Basophils # (Auto) 0.0 x10^3/uL (0.0-0.2) Platelet Estimate Pending Prothrombin Time 14.0 SEC (11.7-14.0) Prothrombin Time INR 1.2 (0.8-1.1) H PTT 33 SEC (24-38) Urine Collection Type Unknown Urine Color Yellow Urine Clarity Clear Urine pH 5.0 Urine Specific [place] 1.020 Urine Protein >=300 mg/dL (NEG-TRACE) Urine Glucose (UA) Negative mg/dL (NEG) Urine Ketones (Stick) Negative mg/dL (NEG) Urine Blood Large (NEG) Urine Nitrite Negative (NEG) Urine Bilirubin Negative (NEG) Urine Urobilinogen Dipstick 0.2 mg/dL (0.2 mg/dL) Urine Leukocyte Esterase Negative (NEG) Urine RBC >40 /HPF (0-2) Urine WBC 1-4 /HPF (0-4) Urine Squamous Epithelial Cells Few /LPF Urine Bacteria Few /HPF (0-FEW) Urine Hyaline Casts Few /HPF Urine Granular Casts Few /HPF Urine Mucus Mod /LPF Laboratory Tests 11/29/16 20:01 EKG EKG [] Radiology/Procedures Radiology/Procedures [] Impressions: Abdominal pain Diarrhea Course & Med Decision Making Course & Med Decision Making Pertinent Labs and Imaging studies reviewed. (See chart for details) Patient presents with abdominal pain and diarrhea. Labs, CT scan abdomen pelvis is pending at this time. He is receiving IV fluids and antinausea meds and pain meds. Patient is being checked out to Dr. Perciado in stable condition this time. Final disposition to Dr. Preciado. Ning Disclaimer Ning Disclaimer This electronic medical record was generated, in whole or in part, using a voice recognition dictation system. Departure Departure Referrals: NO PCP (PCP) NORMA PORTILLO MD Nov 29, 2016 19:58
[2016-11-29] MEDS ORDERED: IV NORMAL SALINE 1000ML BAG 1,000 ML IV SCH (20:01)
[2016-11-29 20:11] LABS: BASO % 0 % (0-3); BILIRUBIN,URINE NEGATIVE (NEG); EOS % 2 % (0-3); GLUCOSE,URINE NEGATIVE (NEG); HEMATOCRIT 37.2 % (39.0-53.0); HEMOGLOBIN 11.8 g/dL (13.0-17.5); LYMPH # 2.1 x10^3/uL (1.0-4.8); LYMPH % 19 % (24-48); MEAN CORPUSCULAR HEMOGLOBIN 21 pg (25-35); MEAN CORPUSCULAR HGB CONC 32 g/dL (31-37); MEAN CORPUSCULAR VOLUME 67 fL (79-100); MONO % 9 % (0-9); NEUT % 70 % (31-73); NITRITE,URINE NEGATIVE (NEG); PLATELET COUNT 368 x10^3/uL (140-400); PROTEIN,URINE >=300 mg/dL (NEG-TRACE); RED BLOOD COUNT 5.52 x10^6/uL (4.30-5.70); RED CELL DISTRIBUTION WIDTH 16.1 % (11.5-14.5); UROBILINOGEN,URINE 0.2 mg/dL (0.2 mg/dL); WHITE BLOOD COUNT 10.7 x10^3/uL (4.0-11.0)
[2016-11-29] MEDS ORDERED: ONDANSETRON PF 4 MG/2 ML VIAL. IV ONE (20:15)
[2016-11-29 20:21] LABS: BACTERIA,URINE FEW /HPF (0-FEW); INR 1.2 (0.8-1.1); RBC,URINE >40 /HPF (0-2); SQUAMOUS EPITHELIAL CELL,UR FEW /LPF
[2016-11-29 20:27] LABS: BARBITURATES NEG (NEG); BENZODIAZEPINES NEG (NEG); CANNABINOIDS NEG (NEG); COCAINE NEG (NEG); METHADONE NEG (NEG); OPIATES NEG (NEG); PHENCYCLIDINE NEG (NEG)
[2016-11-29 20:29] LABS: CALCIUM 8.7 mg/dL (8.5-10.1); CREATININE 1.4 mg/dL (0.7-1.3); GFR 58.7; POTASSIUM 3.9 mmol/L (3.5-5.1)
[2016-11-29] MEDS: MORPHINE SULFATE 4 MG/ML DISP.SYRIN. IV/SQ PRN ×2 (20:30→21:27)
[2016-11-29] MEDS ORDERED: IOHEXOL 300 MG/ML 75 ML VIAL IV ONE (20:30)
[2016-11-29] MEDS ORDERED: CONTRAST GIVEN MC PRN (20:30)
[2016-11-29 20:33] LABS: ALBUMIN 3.8 g/dL (3.4-5.0); DIRECT BILIRUBIN 0.1 mg/dL (0.0-0.2); TOTAL BILIRUBIN 0.6 mg/dL (0.2-1.0); TOTAL PROTEIN 7.7 g/dL (6.4-8.2)
[2016-11-29 20:39] LABS: PLT ESTIMATE ADEQUATE (ADEQUATE)
[2016-11-29 20:42] LABS: ANISOCYTOSIS SLIGHT; HYPOCHROMIA MARKED; MICROCYTOSIS MARKED; OVALOCYTES FEW; POIKILOCYTOSIS SLIGHT
[2016-11-29 21:14] LABS: NEG OBC FOB NEG; POS OBC FOB POS
--- NOTE | 2016-11-29 21:22 | RAD ---
CT study of the abdomen and pelvis with contrast Clinical indications: Lower abdominal pain and diarrhea for 2 days. History of appendectomy and kidney stones. TECHNIQUE: After IV infusion of 60 cc of Omnipaque 300, helical CT scanning of the abdomen and pelvis was performed. No GI contrast was administered. This may decrease the sensitivity to detect GI tract pathology. PQRS compliance Statement One or more of the following individualized dose reduction techniques were utilized for this study: 1. Automated exposure control 2. Adjustment of the mA and/or kV according to patient size 3. Use of iterative reconstruction technique COMPARISON: November 20, 2016. FINDINGS: The liver and spleen and pancreas and gallbladder are normal. No extrahepatic biliary ductal dilatation is seen. No adrenal mass is evident. Both kidneys are normal without hydronephrosis or hydroureter. The previously seen left upper urinary tract obstruction has been relieved with surgical removal of the stone seen previously. The urinary bladder wall is smooth. No focal aneurysmal dilatation of the abdominal aorta is seen. No enlarged abdominal or pelvic lymphadenopathy is seen. The terminal ileum is unremarkable. No obstructive bowel pattern is seen. No free air or free fluid or inflammatory change is seen. No lung base consolidation is evident. No osteolytic process is seen. IMPRESSION: No acute abnormality of the abdomen or pelvis is evident. Electronically signed by: Iván Kothari MD (11/29/2016 9:19 PM)
[2016-11-29] MEDS ORDERED: LOPE2CAP PO (22:11)
[2016-11-29] MEDS ORDERED: DICY10CA53 PO (22:17)
[2016-11-29 22:20] VITALS: BP 103/59
== END 2016-11-29 22:24 | disposition home or self-care (01) ==
LOC: ER 19:22
DX: R19.7 Diarrhea, unspecified (principal); R10.9 Unspecified abdominal pain; D50.9 Iron deficiency anemia, unspecified; Z87.442 Personal history of urinary calculi
CPT/HCPCS: 36415; 74177; 80048; 80076; 80305; 80320; 81001; 82274; 82550; 83605; 83690; 85007; 85027; 85610; 85730; 96361; 96374; 96375; 96376; 99285; J2270; J2405; J7030; Q9967; G0481

== ENCOUNTER 2017-02-21 11:22 | Emergency (ER) | payer OTHER ==
[~2017-02-21] VITALS: Ht 167.6 cm; Wt 73.7 kg
[~2017-02-21 11:22] MED LIST changes: +DICY10CA53 PO; +LOPE2CAP PO
[2017-02-21 12:27] LABS: BILIRUBIN,URINE NEGATIVE (NEG); GLUCOSE,URINE NEGATIVE (NEG); NITRITE,URINE NEGATIVE (NEG); PROTEIN,URINE 100 mg/dL (NEG-TRACE); UROBILINOGEN,URINE 0.2 mg/dL (0.2 mg/dL)
--- NOTE | 2017-02-21 12:34 | PHYS DOC ---
Past Medical History Past Medical History: Kidney Stone, Other Additional Past Medical Histor: HEMORRHOIDS, hernia Past Surgical History: Appendectomy, Other Additional Past Surgical Histo: CYSTOSCOPY W/ KIDNEY STONE REMOVAL & STENT PLACEMENT Alcohol Use: None Drug Use: None Adult General Chief Complaint Chief Complaint: PAIN ON URINATION HPI HPI Patient is a 31 year old male who presents with complaints of dysuria as well as suprapubic pain is been going on for a few days, possibly similar to previous kidney stone pain. Patient denies any penile discharge. Patient has no other medical problems other than hemorrhoids. Denies any fevers/chills/rashes or/trauma/sick contacts. Patient has noted possible blood in the urine. Review of Systems Review of Systems Constitutional: Denies fever or chills [] HENT: Denies neck pain Respiratory: Denies cough or shortness of breath [] Cardiovascular: No chest pain GI: Denies nausea, vomiting, bloody stools or diarrhea. Yes to suprapubic pain : Yes to possible hematuria and dysuria, no discharge Musculoskeletal: Denies back pain or joint pain [] Integument: Denies rash or skin lesions [] Neurologic: Denies headache, focal weakness or sensory changes [] Current Medications Current Medications Current Medications Medications (Trade) Dose Ordered Sig/[facility] Start Time Stop Time Status Last Admin Dose Admin Ketorolac Tromethamine (Toradol) 30 mg 1X ONCE 02/21/17 12:45 02/21/17 12:46 DC 02/21/17 13:01 30 MG Ringer's Solution 1,000 ml @ 1,000 mls/hr Q1H 02/21/17 12:45 02/21/17 13:44 DC 02/21/17 13:03 1,000 MLS/HR Allergies Allergies Allergies Coded Allergies Type Severity Reaction Last Updated Verified No Known Drug Allergies 11/19/16 No Physical Exam Physical Exam Constitutional: Well developed, well nourished, no acute distress, non-toxic appearance. [] HENT: Normocephalic, atraumatic, oropharynx moist, no oral exudates, nose normal. [] Eyes: EOMI, conjunctiva normal, no discharge. [] Neck: Normal range of motion, no tenderness, trachea midline, no stridor. [] Cardiovascular:Heart rate regular rhythm, no murmur, equal pulses, normal perfusion Lungs & Thorax: Bilateral breath sounds clear to auscultation, no tachypnea Abdomen: Bowel sounds normal, soft, suprapubic tenderness without guarding or rebound, no masses, no pulsatile masses. [] Skin: Warm, dry, no erythema, no rash. [] Back: No tenderness, no CVA tenderness. [] Extremities: No tenderness, no cyanosis, no DVT, ROM intact, no edema. [] Neurologic: Alert and oriented X 3, normal motor function,, no focal deficits noted. [] Psychologic: Affect normal, judgement normal, mood normal. [] Current Patient Data Vital Signs Vital Signs Date Time Temp Pulse Resp B/P (MAP) Pulse Ox O2 Delivery O2 Flow Rate FiO2 02/21/17 13:00 62 116/74 (88) 99 Room Air 02/21/17 12:15 98.2 16 98.2 Lab Values Laboratory Tests Test 02/21/17 12:20 02/21/17 12:59 Urine Collection Type Void Urine Color Yellow Urine Clarity Clear Urine pH 5.0 Urine Specific [place] 1.015 Urine Protein 100 mg/dL (NEG-TRACE) Urine Glucose (UA) Negative mg/dL (NEG) Urine Ketones (Stick) Negative mg/dL (NEG) Urine Blood Large (NEG) Urine Nitrite Negative (NEG) Urine Bilirubin Negative (NEG) Urine Urobilinogen Dipstick 0.2 mg/dL (0.2 mg/dL) Urine Leukocyte Esterase Negative (NEG) Urine RBC >40 /HPF (0-2) Urine WBC 1-4 /HPF (0-4) Urine Squamous Epithelial Cells Few /LPF Urine Bacteria Few /HPF (0-FEW) Urine Mucus Mod /LPF White Blood Count 8.3 x10^3/uL (4.0-11.0) Red Blood Count 5.55 x10^6/uL (4.30-5.70) Hemoglobin 11.7 g/dL (13.0-17.5) L Hematocrit 37.4 % (39.0-53.0) L Mean Corpuscular Volume 67 fL (79-100) L Mean Corpuscular Hemoglobin 21 pg (25-35) L Mean Corpuscular Hemoglobin Concent 31 g/dL (31-37) Red Cell Distribution Width 19.4 % (11.5-14.5) H Platelet Count 256 x10^3/uL (140-400) Neutrophils (%) (Auto) 59 % (31-73) Lymphocytes (%) (Auto) 30 % (24-48) Monocytes (%) (Auto) 8 % (0-9) Eosinophils (%) (Auto) 2 % (0-3) Basophils (%) (Auto) 1 % (0-3) Neutrophils # (Auto) 4.9 x10^3uL (1.8-7.7) Lymphocytes # (Auto) 2.5 x10^3/uL (1.0-4.8) Monocytes # (Auto) 0.7 x10^3/uL (0.0-1.1) Eosinophils # (Auto) 0.2 x10^3/uL (0.0-0.7) Basophils # (Auto) 0.1 x10^3/uL (0.0-0.2) Platelet Estimate Pending Sodium Level 141 mmol/L (136-145) Potassium Level 3.4 mmol/L (3.5-5.1) L Chloride Level 105 mmol/L (98-107) Carbon Dioxide Level 30 mmol/L (21-32) Anion Gap 6 (6-14) Blood Urea Nitrogen 13 mg/dL (8-26) Creatinine 1.0 mg/dL (0.7-1.3) Estimated GFR (Cockcroft-Gault) 86.6 Glucose Level 94 mg/dL (70-99) Calcium Level 9.0 mg/dL (8.5-10.1) Laboratory Tests 02/21/17 12:59 Laboratory Tests 02/21/17 12:59 EKG EKG [] Radiology/Procedures Radiology/Procedures 3.3 mm calculus in the dependent aspect of the ureter probably a recently passed calculus from the left ureter. There is mild left hydroureteronephrosis.[] Course & Med Decision Making Course & Med Decision Making Pertinent Labs and Imaging studies reviewed. (See chart for details), labs have been discussed as well as imaging results have been discussed with the patient. Patient understands this and the need to follow-up and recheck. 1420 patient sleeping comfortably in no distress [] Dragon Disclaimer Dragon Disclaimer This electronic medical record was generated, in whole or in part, using a voice recognition dictation system. Departure Departure Impression: Primary Impression: Ureteral colic Additional Impressions: Kidney stone Dysuria Hematuria Disposition: 01 HOME, SELF-CARE Condition: STABLE Referrals: NO PCP (PCP) You told us you have primary care doctor please follow-up with your doctor for recheck and reevaluation in 2-4 days. If your symptoms worsen or new concerning symptoms develop please return to the ED immediately. If you have a primary care doctor to follow-up with please follow-up one of the clinics in the list provided to you. Patient Instructions: Diet for Kidney Stones, Dysuria-Brief, Hematuria-Brief, Ureteral Colic, [id number] Scripts Ketorolac Tromethamine (KETOROLAC TROMETHAMINE) 10 Mg Tablet 1 TAB PO TID, #15 TAB Prov: Laura LEE MD 02/21/17 Acetaminophen With Codeine (ACETAMINOPHEN-COD #3 TABLET) 1 Each Tablet 1 TAB PO PRN Q6HRS Y for PAIN for 2 Days, #8 TAB Prov: Laura LEE MD 02/21/17 Phenazopyridine Hcl (PYRIDIUM) 100 Mg Tablet 100 MG PO TID for 2 Days, #6 TAB Prov: Laura LEE MD 02/21/17 Problem Qualifiers Laura LEE MD Feb 21, 2017 12:34
[2017-02-21 12:35] LABS: SQUAMOUS EPITHELIAL CELL,UR FEW /LPF
[2017-02-21 12:36] LABS: BACTERIA,URINE FEW /HPF (0-FEW); RBC,URINE >40 /HPF (0-2)
[2017-02-21] MEDS ORDERED: IV RINGERS,LACTATED 1000ML 1,000 ML IV SCH (12:45)
[2017-02-21] MEDS ORDERED: KETOROLAC TROMETHAMINE 30 MG/ML INJ. IV ONE (12:45)
[2017-02-21 13:00] VITALS: BP 116/74
--- NOTE | 2017-02-21 13:08 | RAD ---
Exam performed: CT scan of the abdomen and pelvis without contrast. Clinical Indication: Left lank pain. Hematuria Date of Service: 02/21/17 comparison made [address] a CT abdomen pelvis from 617 Technique: Contiguous helical acquisitions are obtained through the abdomen and pelvis without IV contrast. Sagittal and coronal reformatted images are obtained and reviewed. CT abdomen and pelvis findings: There is a 3.3 mm at this left posterior lateral aspect of the urinary bladder probably a recently passed calculus from the left ureter. There is dilation of the left ureter throughout with mild left hydronephrosis and mild left perinephric stranding. The right kidney appears normal. No right hydronephrosis is seen. There is a punctate 1 to 2 mm tiny calculus in the right inferior renal pole. The lung bases are essentially clear. Visualized heart is normal. Lack of IV contrast limits evaluation of abdominal viscera, however the liver, gallbladder, spleen and pancreas are normal. Both adrenal glands and bilateral kidneys are symmetric in size. Aorta is normal in caliber without aneurysm. The small and large bowel loops are nondilated and unremarkable. Appendix is not clearly seen Urinary bladder is decompressed and thick walled. [Prostate gland, seminal vesicles and the rectum appear normal.] No free or focal fluid collections are identified. Impression: 3.3 mm calculus in the dependent aspect of the ureter probably a recently passed calculus from the left ureter. There is mild left hydroureteronephrosis. PQRS Compliance Statement: One or more of the following individualized dose reduction techniques were utilized for this examination: 1. Automated exposure control 2. Adjustment of the mA and/or kV according to patient size 3. Use of iterative reconstruction technique
[2017-02-21 13:17] LABS: BASO # 0.1 x10^3/uL (0.0-0.2); BASO % 1 % (0-3); EOS % 2 % (0-3); HEMATOCRIT 37.4 % (39.0-53.0); HEMOGLOBIN 11.7 g/dL (13.0-17.5); LYMPH # 2.5 x10^3/uL (1.0-4.8); LYMPH % 30 % (24-48); MEAN CORPUSCULAR HEMOGLOBIN 21 pg (25-35); MEAN CORPUSCULAR HGB CONC 31 g/dL (31-37); MEAN CORPUSCULAR VOLUME 67 fL (79-100); MONO % 8 % (0-9); NEUT % 59 % (31-73); PLATELET COUNT 256 x10^3/uL (140-400); RED BLOOD COUNT 5.55 x10^6/uL (4.30-5.70); RED CELL DISTRIBUTION WIDTH 19.4 % (11.5-14.5); WHITE BLOOD COUNT 8.3 x10^3/uL (4.0-11.0)
[2017-02-21 13:33] LABS: GFR 86.6; POTASSIUM 3.4 mmol/L (3.5-5.1)
[2017-02-21] MEDS ORDERED: PHEN100T82 PO (14:26)
[2017-02-21] MEDS ORDERED: ACET1TAB33 PO (14:26)
[2017-02-21] MEDS ORDERED: KETO10TA PO (14:26)
[2017-02-21 18:11] LABS: ANISOCYTOSIS SLIGHT; HYPOCHROMIA MOD; MICROCYTOSIS MARKED; PLT ESTIMATE ADEQUATE (ADEQUATE); POIKILOCYTOSIS SLIGHT
== END 2017-02-21 14:40 | disposition home or self-care (01) ==
LOC: ER 11:22
DX: N23 Unspecified renal colic (principal); N13.2 Hydronephrosis with renal and ureteral calculous obstruction; Z87.442 Personal history of urinary calculi
CPT/HCPCS: 36415; 74176; 80048; 81001; 85025; 96361; 96374; 99285; J1885; J7120

== ENCOUNTER 2017-06-19 11:43 | Emergency (ER) | payer OTHER | END 2017-06-19 12:43 | disposition home or self-care (01) | LOC: ER 11:43 | DX: J06.9 Acute upper respiratory infection, unspecified (principal); B97.89 Other viral agents as the cause of diseases classified elsewhere; Z87.442 Personal history of urinary calculi | CPT/HCPCS: 99281 ==

== ENCOUNTER 2017-08-25 20:54 | Emergency (ER) | payer OTHER ==
[2017-08-26 07:09] LABS: NEGATIVE OBC STREP NEG; POSITIVE OBC STREP POS
== END 2017-08-25 22:16 | disposition home or self-care (01) ==
LOC: ER 20:54
DX: J02.0 Streptococcal pharyngitis (principal)
CPT/HCPCS: 87880; 99283

== ENCOUNTER 2018-04-11 12:58 | Emergency (ER) | payer OTHER ==
[~2018-04-11] VITALS: Ht 167.6 cm; Wt 79.4 kg
[~2018-04-11 12:58] MED LIST changes: +ACET1TAB33 PO; +KETO10TA PO; +PENI250S14 PO; +PHEN100T82 PO
[2018-04-11 13:00] VITALS: BP 131/93
[2018-04-11] MEDS ORDERED: CIPR7.5D RIGHT EAR (13:22)
--- NOTE | 2018-04-11 13:25 | PHYS DOC ---
Past Medical History Past Medical History: Kidney Stone, Other Additional Past Medical Histor: HEMORRHOIDS, hernia Past Surgical History: Appendectomy, Other Additional Past Surgical Histo: CYSTOSCOPY W/ KIDNEY STONE REMOVAL & STENT PLACEMENT Alcohol Use: None Drug Use: None Adult General Chief Complaint Chief Complaint: EARACHE/EAR PAIN [facility] HPI Patient is a 32 year old male who presents with right ear pain 3 days. Patient states he took ibuprofen at noon. Patient rates pain 9 out of 10. Patient had his tonsils out by Dr. Sheffield at last Friday. Patient denies any fever, nausea, vomiting. Patient states he supposed follow up on Friday but seems unsure. Patient states he does have a bit of a frontal headache. Patient states she's also had a cough for the last 2 days. Patient denies coughing up any blood or having excessive secretions or having to clear his throat often. He states he takes no medications daily and his only history is a kidney stone. Patient states he is not allergic to any medications. Review of Systems Review of Systems Constitutional: Denies fever or chills [] Eyes: Denies change in visual acuity, redness, or eye pain [] HENT: Denies nasal congestion. sore throat from post tonsillectomy 5 days ago. Right ear pain x 3 days. Respiratory: Cough x 2 days. Denies shortness of breath [] Cardiovascular: No additional information not addressed in HPI [] GI: Denies abdominal pain, nausea, vomiting, bloody stools or diarrhea [] : Denies dysuria or hematuria [] Musculoskeletal: Denies back pain or joint pain [] Integument: Denies rash or skin lesions [] Neurologic: Denies headache, focal weakness or sensory changes [] Endocrine: Denies polyuria or polydipsia [] All other systems were reviewed and found to be within normal limits, except as documented in this note. Current Medications Current Medications Current Medications Medications (Trade) Dose Ordered Sig/Alvin Start Time Stop Time Status Last Admin Dose Admin Dexamethasone (Decadron) 8 mg 1X ONCE 04/11/18 13:30 04/11/18 13:31 DC 04/11/18 13:30 8 MG Allergies Allergies Allergies Coded Allergies Type Severity Reaction Last Updated Verified No Known Drug Allergies 11/19/16 No Physical Exam Physical Exam Constitutional: Well developed, well nourished, no acute distress, non-toxic appearance. [] HENT: Normocephalic, atraumatic, bilateral external ears normal, oropharynx moist, no oral exudates, nose normal. Otitis media externa. Eyes: PERRLA, EOMI, conjunctiva normal, no discharge. [] Neck: Normal range of motion, no tenderness, supple, no stridor. [] Cardiovascular:Heart rate regular rhythm, no murmur [] Lungs & Thorax: Bilateral breath sounds clear to auscultation [] Abdomen: Bowel sounds normal, soft, no tenderness, no masses, no pulsatile masses. [] Skin: Warm, dry, no erythema, no rash. [] Back: No tenderness, no CVA tenderness. [] Extremities: No tenderness, no cyanosis, no clubbing, ROM intact, no edema. [] Neurologic: Alert and oriented X 3, normal motor function, normal sensory function, no focal deficits noted. [] Psychologic: Affect normal, judgement normal, mood normal. [] Current Patient Data Vital Signs Vital Signs Date Time Temp Pulse Resp B/P (MAP) Pulse Ox O2 Delivery O2 Flow Rate FiO2 04/11/18 13:00 98.6 96 20 131/93 (106) 99 Room Air 98.6 EKG EKG [] Radiology/Procedures Radiology/Procedures [] Course & Med Decision Making Course & Med Decision Making Patient is a 32 year old male who presents with right ear pain 3 days. Patient states he took ibuprofen at noon. Patient rates pain 9 out of 10. Patient had his tonsils out by Dr. Sheffield at last Friday. Patient denies any fever, nausea, vomiting. Patient states he supposed follow up on Friday but seems unsure. Patient states he does have a bit of a frontal headache. Patient states she's also had a cough for the last 2 days. Patient denies coughing up any blood or having excessive secretions or having to clear his throat often. He states he takes no medications daily and his only history is a kidney stone. Patient states he is not allergic to any medications. Upon examination lungs are clear bilaterally in all lobes. Heart rate regular without murmur. Afebrile. Patient denies any current nausea or vomiting or diarrhea. Patient is neurologically intact. Upon here examination the right ear is very tender upon examination but the tympanic membrane is pearly white with a reddened canal. Patient has no sinus tenderness with palpation. He denies any nasal congestion. Patient states that he does have a cough but has not coughed up anything and has been happening last 2 days. Upon looking in the back of his throat is tonsils are healing and there is no discharge or blood drainage. Denies any chest pain or shortness of air. His chest x-ray shows no acute findings. Patient will be sent home with eardrops and needs to follow-up with his primary care provider by calling them on Friday and he should also call his surgeon on Friday if he is unsure of his follow-up appointment. Continue taking ibuprofen for pain. [] Dragon Disclaimer Dragon Disclaimer This electronic medical record was generated, in whole or in part, using a voice recognition dictation system. Departure Departure Impression: Primary Impression: Otitis externa Disposition: HOME, SELF-CARE Condition: STABLE Referrals: UNKNOWN PCP NAME (PCP) Patient Instructions: Otitis Externa Additional Instructions: Call your doctor on Friday if not feeling better. Call the surgeon Dr Sheffield who performed your tonsillectomy for a follow up appointment. Take medications as prescribed. Scripts Ciprofloxacin Hcl/Dexameth (CIPRODEX OTIC SUSPENSION) 7.5 Ml Drops.susp 4 DROP RIGHT EAR BID for 7 Days, #7.5 ML Prov: FLOYD BURLESON [employer] 04/11/18 Problem Qualifiers Primary Impression: Otitis externa Otitis externa type: unspecified type Chronicity: acute Laterality: right Qualified Codes: H60.501 - Unspecified acute noninfective otitis externa, right ear FLOYD BURLESON [employer]IVER Apr 11, 2018 13:25
[2018-04-11] MEDS ORDERED: DEXAMETHASONE 4 MG TABLET PO ONE (13:30)
--- NOTE | 2018-04-11 13:50 | RAD ---
Chest PA and lateral 04/11/2018. Reason for exam: Cough. Tonsillectomy several days ago. Comparison is made with a study of 08/09/2010. No infiltrate or effusion is seen. Heart size and pulmonary vascularity appear normal. No airway narrowing or abnormal soft tissue air is seen. IMPRESSION: No acute disease. Electronically signed by: Kyaw Baldwin Jr., MD (04/11/2018 1:46 PM) [facility] [place]
== END 2018-04-11 14:37 | disposition home or self-care (01) ==
LOC: ER 12:58
DX: H60.501 Unspecified acute noninfective otitis externa, right ear (principal); R05 Cough; R51 Headache; J02.9 Acute pharyngitis, unspecified; Z90.89 Acquired absence of other organs
CPT/HCPCS: 71046; 99284; J8540